=== PATIENT | female | born 1945 | race Two or more races ===

== ENCOUNTER 2016-11-23 13:24 | Emergency (ER) | payer MEDICARE ==
[~2016-11-23] VITALS: Ht 154.9 cm; Wt 65.8 kg
[2016-11-23 14:39] VITALS: BP 126/64
== END 2016-11-23 15:23 | disposition home or self-care (01) ==
LOC: ER 13:25
DX: S52.501A Unspecified fracture of the lower end of right radius, initial encounter for closed fracture (principal); W01.0XXA Fall on same level from slipping, tripping and stumbling without subsequent striking against object, initial encounter; Y93.89 Activity, other specified; Y92.89 Other specified places as the place of occurrence of the external cause; Y99.8 Other external cause status
CPT/HCPCS: 29125; 73130

== ENCOUNTER 2017-01-22 13:28 | Emergency (ER) | payer MEDICARE ==
[~2017-01-22] VITALS: Ht 167.6 cm; Wt 66.7 kg
[2017-01-22 13:45] VITALS: BP 114/49
== END 2017-01-22 19:20 | disposition left against medical advice (07) ==
LOC: ER 13:28
DX: F41.9 Anxiety disorder, unspecified (principal); Z76.0 Encounter for issue of repeat prescription; Z53.21 Procedure and treatment not carried out due to patient leaving prior to being seen by health care provider

== ENCOUNTER 2017-01-23 11:20 | Emergency (ER) | payer MEDICARE ==
[~2017-01-23] VITALS: Ht 170.2 cm; Wt 66.7 kg
[2017-01-23 11:24] VITALS: BP 99/52
== END 2017-01-23 12:25 | disposition home or self-care (01) ==
LOC: ER 11:26
DX: F41.9 Anxiety disorder, unspecified (principal); Z76.0 Encounter for issue of repeat prescription

== ENCOUNTER 2017-09-15 12:44 | Emergency (ER) | payer MEDICARE ==
[~2017-09-15] VITALS: Ht 170.2 cm; Wt 62.1 kg
[2017-09-15 13:12] VITALS: BP 116/63
== END 2017-09-15 13:41 | disposition home or self-care (01) ==
LOC: ER 12:44
DX: L25.9 Unspecified contact dermatitis, unspecified cause (principal)